=== PATIENT | female | born 1960 | race Hispanic/Latino ===

== ENCOUNTER 2019-12-01 08:09 | Day surgery (SDC) | payer OTHER ==
[2019-11-28 15:58] LABS: BASOPHILS % (AUTO) 0.4 % (0.0-5.0); EOSINOPHILS % (AUTO) 3.8 % (0.0-8.0); HEMATOCRIT 41.2 % (36-48); LYMPHOCYTES % (AUTO) 20.3 % (21.0-51.0); MEAN CORPUSCULAR HEMOGLOBIN 28.7 pg (27.0-33.0); MEAN CORPUSCULAR HGB CONC 32.8 g/dL (32.0-36.0); MEAN CORPUSCULAR VOLUME 87.7 fL (79-99); MONOCYTES % (AUTO) 8.1 % (3.0-13.0); NEUTROPHILS % (AUTO) 67.1 % (40.0-77.0); PLATELET COUNT (AUTO) 308 K/uL (130-400); RED CELL DISTRIBUTION WIDTH 13.3 % (11.0-15.5); WHITE BLOOD COUNT (AUTO) 6.9 K/uL (4.8-10.8)
[2019-11-28 16:09] LABS: CREATININE 0.9 mg/dL (0.5-1.5); POTASSIUM 3.6 mmol/L (3.5-5.1)
[2019-11-30 17:33] VITALS: BP 135/68
[2019-12-01] VITALS (18 sets, daily range): BP systolic 116–142; BP diastolic 64–80
[~2019-12-01] VITALS: Ht 157.5 cm; Wt 94.2 kg
[2019-12-01] MEDS: CEFAZOLIN SODIUM 1 GM VIAL IVP SCH ×2 (06:00→13:45)
[~2019-12-01 08:09] MED LIST: ALBU0.63 IH; ALBU8.5H8 IH; AMLO-257 PO; BUDE10.2 IH; FEXO180T94 PO; FOLI1TAB15 PO; GABA-533 PO; LIFI1DRO OU; MAGN400T40 PO; MONT10TA26 PO; PANT40TA54 PO; VITAMIN D PO; [UNRECOGNIZED DRUG - OTHER] SL
[2019-12-01] MEDS ORDERED: LACTATED RINGERS 1000ML 1,000 ML IV ONE (09:59)
[2019-12-01] MEDS ORDERED: EPINEPHRINE 1 MG/ML AMPULE ONE ×2 (11:58→15:24)
[2019-12-01] MEDS ORDERED: ALBUTEROL INHALER 90MCG/INH IH SCH (12:00)
[2019-12-01] MEDS ORDERED: LIDOCAINE PF 2% 5ML ABBOJECT ONE (12:37)
[2019-12-01] MEDS ORDERED: MIDAZOLAM HCL 1 MG/ML 2ML VIAL ONE (12:37)
[2019-12-01] MEDS ORDERED: SUCCINYLCHOLINE CHLORIDE 20 MG/ML 10 ML VIAL ONE (12:37)
[2019-12-01] MEDS ORDERED: FENTANYL CITRATE PF 50 MCG/1 ML 2ML VIAL ONE (12:38)
[2019-12-01] MEDS ORDERED: ROCURONIUM 10MG/1ML SYR 10 MG/ML ML ONE (12:38)
[2019-12-01] MEDS ORDERED: PROPOFOL 10 MG/ML 20ML VIAL IV ONE (12:39)
[2019-12-01] MEDS ORDERED: ROPIVACAINE 0.5% 5MG/ML 30ML IJ ONE (13:07)
[2019-12-01] MEDS ORDERED: NEOSTIGMINE 5MG/5ML SYR IV ONE (16:13)
[2019-12-01] MEDS ORDERED: GLYCOPYRROLATE 1 MG/5 ML SYRINGE ONE (16:13)
[2019-12-01] MEDS ORDERED: CEPH500B PO (16:23)
[2019-12-01] MEDS ORDERED: NAPR-1192 PO (16:23)
[2019-12-01] MEDS ORDERED: HYDR-4457 PO (16:23)
--- NOTE | 2019-12-01 17:35 | NUR ---
PATIENT ARRIVED TO DAY PATIENT VIA STRETCHER BY ROXANNE TEIXEIRA. PATIENT AAOX3, RESPIRATIONS UNLABORED, VITAL SIGNS STABLE, DENIES ANY PAIN AT THIS TIME. DRESSINGS X3 TO RIGHT SHOULDER SECURED WITH CLEAR TAPE. DRESSINGS CLEAN AND DRY, NO DRAINAGE OR BLEEDING NOTED. RIGHT SHOULDER SWOLLEN AND RIGHT ARM IN A SLING.
--- NOTE | 2019-12-01 18:20 | NUR ---
DISCHARGE INSTRUCTIONS PROVIDED TO PATIENT'S SPOUSE OVER THE TELEPHONE. FOLLOW UP APPOINTMENT PROVIDED AND INSTRUCTIONS PROVIDED, PRESCRIPTIONS PROVIDED WELL. ALL QUESTIONS CONCERNS ADDRESSED.
--- NOTE | 2019-12-01 18:40 | NUR ---
PATIENT DISCHARGED FROM FACILITY VIA WHEELCHAIR BY NURSE, PT ASSISTED INTO PRIVATE VEHICLE DRIVEN BY SPOUSE.
== END 2019-12-01 18:40 | disposition home or self-care (01) ==
LOC: DAH 08:09
PROVIDERS: ATTEND Orthopaedic Surgery
DX: M75.111 Incomplete rotator cuff tear or rupture of right shoulder, not specified as traumatic (principal); M19.011 Primary osteoarthritis, right shoulder; M75.41 Impingement syndrome of right shoulder; M75.81 Other shoulder lesions, right shoulder; I10 Essential (primary) hypertension; K21.9 Gastro-esophageal reflux disease without esophagitis; M06.9 Rheumatoid arthritis, unspecified; E11.9 Type 2 diabetes mellitus without complications; M79.7 Fibromyalgia
CPT/HCPCS: 29807; 29824; 29826; 29827; 36415; 64415; 76942; 80048; 85025; A4215; A4221; A4222; A4223; A4565; A4600; A4649 ×5; A4663; A4930 ×2; A6204; C1713 ×3; G0168; J0171 ×2; J0330; J0690; J2001; J2250; J2704; J2710; J2795; J3010; J3490; J7030; J7120 ×2

== ENCOUNTER 2020-11-09 09:00 | Inpatient (IN) | payer OTHER ==
[~2020-11-09] VITALS: Ht 157.5 cm; Wt 85.8 kg
[~2020-11-09 09:00] MED LIST changes: -ALBU0.63 IH; -ALBU8.5H8 IH; -GABA-533 PO; -MONT10TA26 PO; +NAPR-1192 PO; -VITAMIN D PO
[2020-11-09 10:09] LABS: BASOPHILS % (AUTO) 0.4 % (0.0-5.0); EOSINOPHILS % (AUTO) 1.9 % (0.0-8.0); HEMATOCRIT 39.6 % (36-48); LYMPHOCYTES % (AUTO) 26.4 % (21.0-51.0); MEAN CORPUSCULAR HEMOGLOBIN 28.9 pg (27.0-33.0); MEAN CORPUSCULAR HGB CONC 33.8 g/dL (32.0-36.0); MEAN CORPUSCULAR VOLUME 85.5 fL (79-99); MONOCYTES % (AUTO) 9.4 % (3.0-13.0); NEUTROPHILS % (AUTO) 61.5 % (40.0-77.0); PLATELET COUNT (AUTO) 293 K/uL (130-400); RED BLOOD CELL COUNT(AUTO) 4.63 MIL/uL (4.00-5.50); RED CELL DISTRIBUTION WIDTH 14.1 % (11.0-15.5); WHITE BLOOD COUNT (AUTO) 7.2 K/uL (4.8-10.8)
[2020-11-09 10:10] LABS: APPEARANCE,URINE Clear (CLEAR); BILIRUBIN,URINE Negative (NEGATIVE); COLOR,URINE Yellow (YELLOW); GLUCOSE, URINE (UA) Negative (NEGATIVE); KETONES,URINE Negative (NEGATIVE); LEUKOCYTE ESTERASE ,URINE Small (NEGATIVE); NITRATE,URINE Negative (NEGATIVE); OCCULT BLOOD,URINE Trace (NEGATIVE); PH,URINE 6.5 (5.0-8.0); PROTEIN,URINE Negative (NEGATIVE); UROBILINOGEN,URINE 0.2 mg/dL (0.2-1.0)
[2020-11-09 10:16] LABS: CREATININE 0.7 mg/dL (0.5-1.5); POTASSIUM 3.6 mmol/L (3.5-5.1)
[2020-11-09 10:18] LABS: BACTERIA,URINE Few /HPF (None Seen); RBC,URINE 0-1 /HPF (0-1); WBC,URINE 0-1 /HPF (0-1)
[2020-11-09 11:57] VITALS: BP 143/81
[2020-11-09 12:39] LABS: PROTHROMBIN TIME 10.4 SEC (9.6-11.6)
[2020-11-09] MEDS ORDERED: ZINC50TA15 PO (13:30)
[2020-11-09] MEDS ORDERED: MONT-39 PO (13:30)
[2020-11-09] MEDS ORDERED: HYDR12.54 PO (13:30)
[2020-11-09] MEDS ORDERED: VITAMIN B PO (13:30)
[2020-11-09] MEDS ORDERED: GABA-533 PO (13:30)
[2020-11-09] MEDS ORDERED: ALBUHFA IH (13:33)
[2020-11-09] MEDS ORDERED: ALBU2.5V2 IH (13:34)
[2020-11-12] VITALS (21 sets, daily range): BP systolic 123–157; BP diastolic 61–83
[2020-11-12] MEDS ORDERED: CEFAZOLIN SODIUM 1 GM VIAL IVP ONE (08:00)
[2020-11-12] MEDS ORDERED: LACTATED RINGERS 1000ML 1,000 ML IV ONE (08:25)
[2020-11-12] MEDS ORDERED: METOCLOPRAMIDE 10 MG/2 ML VIAL ONE (11:25)
[2020-11-12] MEDS ORDERED: KETOROLAC 15MG/ML VIAL (15MG/ML) ONE (11:25)
[2020-11-12] MEDS ORDERED: CELECOXIB 200 MG CAP ONE (11:25)
[2020-11-12] MEDS ORDERED: ACETAMINOPHEN 500 MG TABLET ONE (11:25)
[2020-11-12] MEDS ORDERED: TRANEXAMIC ACID 1000MG/10ML ONE ×2 (11:52→15:36)
[2020-11-12] MEDS ORDERED: CEFAZOLIN SODIUM 1 GM VIAL ONE (11:52)
[2020-11-12] MEDS ORDERED: GLYCOPYRROLATE 1 MG/5 ML SYRINGE ONE (12:26)
[2020-11-12] MEDS ORDERED: NEOSTIGMINE 5MG/5ML SYR IV ONE (12:26)
[2020-11-12] MEDS ORDERED: ROCURONIUM 10MG/1ML SYR 10 MG/ML ML ONE (12:26)
[2020-11-12] MEDS ORDERED: DEXAMETHASONE SOD PHOSPHATE 10MG/ML 1ML VIAL ONE (12:26)
[2020-11-12] MEDS ORDERED: PROPOFOL 10 MG/ML 20ML VIAL IV ONE (12:26)
[2020-11-12] MEDS ORDERED: SUCCINYLCHOLINE CHLORIDE 20 MG/ML 10 ML VIAL ONE (12:26)
[2020-11-12] MEDS ORDERED: LIDOCAINE PF 100MG/5ML (2%) SYRINGE 5ML ONE (12:26)
[2020-11-12] MEDS ORDERED: ONDANSETRON 4MG INJ ONE (12:26)
[2020-11-12] MEDS ORDERED: MIDAZOLAM HCL 1 MG/ML 2ML VIAL ONE (12:26)
[2020-11-12] MEDS ORDERED: FENTANYL CITRATE PF 50 MCG/1 ML 2ML VIAL ONE (12:27)
[2020-11-12] MEDS ORDERED: ROPIVACAINE 0.5% 5MG/ML 30ML IJ ONE (12:35)
[2020-11-12] MEDS ORDERED: CEFAZOLIN SODIUM 1 GM VIAL IRRIG ONE (13:32)
[2020-11-12] MEDS ORDERED: OXYCODONE HCL 5 MG TAB PO PRN ×2 (16:15)
[2020-11-12] MEDS ORDERED: CALCIUM CARB 500MG PO PRN (16:15)
[2020-11-12] MEDS: 0.9%NACL 1000ML 1,000 ML IV SCH ×2 (16:15→23:37)
[2020-11-12] MEDS ORDERED: POTASSIUM CHLORIDE 20MEQ/100ML 100 ML IV PRN (16:15)
[2020-11-12] MEDS ORDERED: DiphenhydrAMINE HCL 50 MG/ML VIAL IVP PRN (16:15)
[2020-11-12] MEDS ORDERED: ONDANSETRON 4MG INJ IVP PRN (16:15)
[2020-11-12] MEDS: ACETAMINOPHEN 500 MG TABLET PO SCH ×2 (16:15→23:37)
[2020-11-12] MEDS ORDERED: TEMAZEPAM 15 MG CAPSULE PO PRN (16:15)
[2020-11-12] MEDS ORDERED: POTASSIUM CHLORIDE 10% ELIXIR 20 MEQ/15 ML UDCUP PO PRN (16:15)
[2020-11-12] MEDS ORDERED: LIDOCAINE HCL-MPF 1% 2ML VIAL IV PRN (16:15)
[2020-11-12] MEDS ORDERED: FERROUS FUMARATE 324 MG TABLET PO PRN (16:15)
[2020-11-12] MEDS ORDERED: IPRATROPIUM/ALBUTEROL SULFATE 3 ML SOLUTION IH ONE (16:38)
[2020-11-12] MEDS ORDERED: ALBUTEROL 0.083% 2.5 MG/3 ML INH IH PRN (19:15)
[2020-11-12] MEDS ORDERED: ALBUTEROL INHALER 90MCG/INH IH PRN (19:15)
[2020-11-12] MEDS ORDERED: [UNRECOGNIZED DRUG - REMARK] PO PRN (20:00)
[2020-11-12] MEDS ORDERED: NON-FORMULARY MEDICATION 1 EACH (Magnesium Oxide (Magnesium) 400 MG) PO SCH (21:00)
[2020-11-12] MEDS ORDERED: SYMBICORT 160-4.5 MCG INHALER IH SCH (21:00)
[2020-11-12] MEDS: GABAPENTIN 100 MG CAPSULE PO SCH (21:00)
[2020-11-12] MEDS ORDERED: NON-FORMULARY MEDICATION 1 EACH (Gabapentin 400 MG) PO SCH (21:00)
[2020-11-12] MEDS: [UNRECOGNIZED DRUG - OTHER] SL SCH (21:00)
[2020-11-12] MEDS ORDERED: LIFITEGRAST OU SCH (21:00)
[2020-11-12] MEDS: CELECOXIB 200 MG CAP PO SCH (21:07)
[2020-11-12] MEDS: MAGNESIUM OXIDE 400 MG TABLET PO SCH (21:07)
[2020-11-12] MEDS: ASPIRIN 81MG CHEW TAB PO SCH (21:07)
[2020-11-12] MEDS: CEFAZOLIN SODIUM 1 GM VIAL IVP SCH (21:08)
[2020-11-13 03:45] VITALS: BP 126/61
[2020-11-13 04:20] LABS: HEMATOCRIT 33.5 % (36-48); MEAN CORPUSCULAR HGB CONC 34.3 g/dL (32.0-36.0); MEAN CORPUSCULAR VOLUME 84.6 fL (79-99); RED BLOOD CELL COUNT(AUTO) 3.96 MIL/uL (4.00-5.50); RED CELL DISTRIBUTION WIDTH 13.9 % (11.0-15.5); WHITE BLOOD COUNT (AUTO) 11.1 K/uL (4.8-10.8)
[2020-11-13 04:33] LABS: CREATININE 0.8 mg/dL (0.5-1.5); POTASSIUM 3.3 mmol/L (3.5-5.1)
[2020-11-13] MEDS: CEFAZOLIN SODIUM 1 GM VIAL IVP SCH (05:26)
[2020-11-13] MEDS: KCL 20 MEQ ERTAB PO PRN ×3 (05:27→21:21)
[2020-11-13] MEDS: AMLODIPINE 5 MG TAB PO SCH (08:19)
[2020-11-13] MEDS: PANTOPRAZOLE 40 MG TAB DR PO SCH (08:19)
[2020-11-13] MEDS: ASPIRIN 81MG CHEW TAB PO SCH ×2 (08:19→21:19)
[2020-11-13] MEDS: FOLIC ACID 1 MG TABLET PO SCH (08:19)
[2020-11-13] MEDS: CYANOCOBALAMIN (VITAMIN B-12) 1,000 MCG TABLET PO SCH (08:19)
[2020-11-13] MEDS: MAGNESIUM OXIDE 400 MG TABLET PO SCH ×2 (08:19→21:19)
[2020-11-13] MEDS: MONTELUKAST SODIUM 10 MG TAB PO SCH (08:19)
[2020-11-13] MEDS: CELECOXIB 200 MG CAP PO SCH ×2 (08:20→21:20)
[2020-11-13] MEDS: POLYETHYLENE GLYCOL 3350 17 GM POWD.PACK PO SCH (08:21)
[2020-11-13] MEDS: GABAPENTIN 100 MG CAPSULE PO SCH ×3 (08:21→21:00)
[2020-11-13] MEDS: [UNRECOGNIZED DRUG - OTHER] SL SCH ×2 (08:21→21:00)
[2020-11-13] MEDS: HYDROCHLOROTHIAZIDE 25 MG TABLET PO SCH (08:21)
[2020-11-13 08:39] VITALS: BP 134/73
[2020-11-13] MEDS ORDERED: NON-FORMULARY MEDICATION 1 EACH (Hydrochlorothiazide 12.5 MG) PO SCH (09:00)
[2020-11-13] MEDS ORDERED: VITAMIN B PO SCH (09:00)
[2020-11-13] MEDS: KETOROLAC 15MG/ML VIAL (15MG/ML) IV PRN (10:48)
[2020-11-13] MEDS: 0.9%NACL 1000ML 1,000 ML IV SCH (12:15)
[2020-11-13 13:09] VITALS: BP 128/72
[2020-11-13 16:44] VITALS: BP 114/66
[2020-11-13] MEDS: ACETAMINOPHEN 500 MG TABLET PO SCH ×2 (17:19→21:20)
[2020-11-13 19:52] VITALS: BP 108/65
[2020-11-13] MEDS: TRAMADOL HCL 50 MG TABLET PO PRN (22:46)
[2020-11-14 00:06] VITALS: BP 136/72
[2020-11-14 04:06] VITALS: BP 127/82
[2020-11-14] MEDS: KETOROLAC 15MG/ML VIAL (15MG/ML) IV PRN (04:17)
[2020-11-14] MEDS: ACETAMINOPHEN 500 MG TABLET PO SCH ×2 (05:50→12:59)
[2020-11-14] MEDS: TRAMADOL HCL 50 MG TABLET PO PRN ×3 (07:29→16:53)
[2020-11-14] MEDS ORDERED: BISACODYL 10 MG SUPP.RECT RC SCH (07:30)
[2020-11-14 07:53] VITALS: BP 131/79
[2020-11-14] MEDS: [UNRECOGNIZED DRUG - OTHER] SL SCH (09:00)
[2020-11-14] MEDS: GABAPENTIN 100 MG CAPSULE PO SCH ×2 (09:00→14:00)
[2020-11-14] MEDS ORDERED: (Zinc Gluconate (Zinc) 50 MG) PO SCH (09:00)
[2020-11-14] MEDS: MAGNESIUM OXIDE 400 MG TABLET PO SCH (09:19)
[2020-11-14] MEDS: AMLODIPINE 5 MG TAB PO SCH (09:19)
[2020-11-14] MEDS: FOLIC ACID 1 MG TABLET PO SCH (09:19)
[2020-11-14] MEDS: CELECOXIB 200 MG CAP PO SCH (09:19)
[2020-11-14] MEDS: ASPIRIN 81MG CHEW TAB PO SCH (09:20)
[2020-11-14] MEDS: CYANOCOBALAMIN (VITAMIN B-12) 1,000 MCG TABLET PO SCH (09:21)
[2020-11-14] MEDS: MONTELUKAST SODIUM 10 MG TAB PO SCH (09:22)
[2020-11-14] MEDS: POLYETHYLENE GLYCOL 3350 17 GM POWD.PACK PO SCH (09:22)
[2020-11-14] MEDS: PANTOPRAZOLE 40 MG TAB DR PO SCH (09:22)
[2020-11-14] MEDS: HYDROCHLOROTHIAZIDE 25 MG TABLET PO SCH (09:22)
[2020-11-14 11:47] VITALS: BP 123/60
[2020-11-14] MEDS ORDERED: HYDR-4060 PO (13:17)
[2020-11-14] MEDS ORDERED: ASPI-1005 PO (13:17)
[2020-11-14 16:11] VITALS: BP 123/77
[2020-11-14 16:32] VITALS: BP 114/54
[2020-11-15] MEDS ORDERED: BISACODYL 10 MG SUPP.RECT RC PRN (16:15)
== END 2020-11-14 17:45 | disposition home health service (06) | DRG 470 ==
LOC: EDSTATUS 09:00 → DAHIP 11-12 07:49 → 4AH 11-12 16:59
PROVIDERS: ADMIT Orthopaedic Surgery; ATTEND Orthopaedic Surgery
PROC: 3E0T3BZ Introduction of Anesthetic Agent into Peripheral Nerves and Plexi, Percutaneous Approach (ICD-10-PCS; 2020-11-12)
PROC: 3E0T33Z Introduction of Anti-inflammatory into Peripheral Nerves and Plexi, Percutaneous Approach (ICD-10-PCS; 2020-11-12)
PROC: 0SRC0J9 Replacement of Right Knee Joint with Synthetic Substitute, Cemented, Open Approach (ICD-10-PCS; principal; 2020-11-12 12:20)
DX: M17.11 Unilateral primary osteoarthritis, right knee (principal); G43.909 Migraine, unspecified, not intractable, without status migrainosus; D64.9 Anemia, unspecified; M06.9 Rheumatoid arthritis, unspecified; I10 Essential (primary) hypertension; M21.00 Valgus deformity, not elsewhere classified, unspecified site; E11.9 Type 2 diabetes mellitus without complications; M79.7 Fibromyalgia; I73.00 Raynaud's syndrome without gangrene; Z96.652 Presence of left artificial knee joint; Z20.822 Contact with and (suspected) exposure to COVID-19; Z90.711 Acquired absence of uterus with remaining cervical stump; Z88.8 Allergy status to other drugs, medicaments and biological substances
CPT/HCPCS: 36415; 80048; 81001; 82948; 84132; 85025; 85027; 85610; 87641; 94640; 94664; 97039; G0378; J0330; J0690; J1100; J1885; J2001; J2250; J2405; J2704; J2710; J2765; J2795; J3010; J3490; J7030; J7120; U0003